=== PATIENT | female | born 1955 | race Caucasian/White ===

== ENCOUNTER 2019-07-14 08:25 | Inpatient (IN) | payer MEDICAID, OTHER ==
[2019-07-14 12:40] VITALS: BP 119/64
[2019-07-14] MEDS ORDERED: Acetaminophen 500 MG TAB PO PRN (13:57)
[2019-07-14] MEDS ORDERED: Magnesium Hydroxide (MOM) 30 mL UDC PO PRN (13:57)
[2019-07-14] MEDS ORDERED: Maalox 30 mL Cup PO PRN (13:57)
[2019-07-14] MEDS ORDERED: GLUCAGON HCl 1 MG KIT IM PRN (14:03)
--- NOTE | 2019-07-14 14:17 | History & Physical ---
ADMIT DATE: 07/14/2019 CHIEF COMPLAINT: Agitation. HISTORY OF PRESENT ILLNESS: We have a 63-year-old female with bipolar and diabetes, who is admitted with suicidal ideations. The patient has longstanding bipolar disease. The patient has newly diagnosed diabetes. The patient denies any chest pain, shortness of breath. No nausea, vomiting, abdominal pain, diarrhea. PAST MEDICAL HISTORY: 1. Diabetes. 2. Bipolar. PAST SURGICAL HISTORY: None. MEDICATIONS: List reviewed. ALLERGIES: None. SOCIAL HISTORY: Tobacco, IV drugs, and ETOH negative. PHYSICAL EXAMINATION: VITAL SIGNS: Temperature is 98.6, pulse 80, respirations 20, blood pressure 119/64. HEENT: Normocephalic, atraumatic head exam. NECK: Supple. CARDIOVASCULAR: Regular rate and rhythm. LUNGS: Clear. ABDOMEN: Soft, nontender. EXTREMITIES: No edema, cyanosis or clubbing. ASSESSMENT AND PLAN: 1. Suicidal ideation. 2. Diabetes. 3. Hypertension. The patient will continue Accu-Cheks q.a.c. and at bedtime. The patient will continue with sliding scale insulin. The patient will continue supportive care. JOB# [id number]
[2019-07-14] MEDS: INSULIN LISPRO SLIDING SCALE 100 UNITS/ML UNIT SUBQ SCH ×2 (17:01→21:37)
[2019-07-14] MEDS: Benztropine 1 MG TAB PO SCH (21:34)
[2019-07-15] MEDS: Levothyroxine 0.025 Mg Tab PO SCH (06:59)
[2019-07-15] MEDS: Potassium Chloride 20 mEq ER Tab PO SCH (06:59)
[2019-07-15] MEDS: INSULIN LISPRO SLIDING SCALE 100 UNITS/ML UNIT SUBQ SCH ×4 (06:59→20:44)
[2019-07-15] MEDS: Pantoprazole 40 mg EC Tab PO SCH (08:39)
[2019-07-15] MEDS: Atorvastatin Calcium 10 MG TAB PO SCH (08:39)
[2019-07-15] MEDS: Multivitamin Tab PO SCH (08:39)
--- NOTE | 2019-07-15 14:49 | Psychiatric Evaluation ---
DATE OF SERVICE: 07/14/2019 IDENTIFYING DATA: The patient is a 63-year-old woman living with a friend. Information obtained by directly interviewing the patient as well as reviewing the admission papers. JUSTIFICATION OF HOSPITALIZATION: The patient is admitted here on a 5150 as a danger to self. CHIEF COMPLAINT: "I'm feeling depressed, I cannot go on like this." HISTORY OF PRESENT ILLNESS: This is one of multiple psychiatric hospitalizations, but the first one to the [facility] for this patient who has overdosed on multiple medications in a suicidal attempt. The patient is reporting that she has been frustrated and has been feeling depressed and has been reluctant to take showers for days together and on the day of the hospitalization, the patient has overdosed on medications and the patient lost control and then fell and sustained injury to her right orbit. The patient has a black eye on the right side and the patient has been evaluated in the Emergency Room and has been medically cleared and transferred over here for further stabilization. The patient is reporting that she is being followed up by Dr. Red Wu in [facility] and the patient is stating that she had been on Seroquel. PAST PSYCHIATRIC HISTORY: The patient has been diagnosed to have bipolar disorder since 1995 and the patient is stating that she had been on several different medications and hospitalized on several occasions. The patient is stating that of all the medications, the Seroquel is the one that has been of some help to her. Past medical history and physical examination is requested from Dr. Fallon and is significant for patient having carcinoma of the breast and the patient has undergone mastectomy on the right side in 07/2016. The patient has an oncologist. She follows up on an outpatient basis. SUBSTANCE ABUSE HISTORY: The patient is recovering and the patient has not had any alcohol in over a decade. The patient is currently on pain medications. PHYSICAL OR SEXUAL ABUSE HISTORY: None. LEGAL PROBLEMS: None at this time. STRENGTH AND ASSETS: The patient is motivated. MENTAL STATUS EXAMINATION: The patient is a 63-year-old, looking her stated age, superficially cooperative. Eye contact is poor. Mood is noted to be depressed. The patient is tearful and stating that she could not fair it out, but the patient is stating that she has all the time feels that the whole world is against her and the patient is stating that she has been having acute mood swings and the patient is stating that she could not fair it out how she can get some control on them. The patient is blaming herself. The patient is alert and oriented to time, place, person and situation. Attention span and concentration are noted to be fair. The patient's short and long-term memory are noted to be intact. The patient is willing to comply with the treatment at this time. The patient's behavior is ____ danger to self. The patient is not homicidal. DIAGNOSTIC IMPRESSION: AXIS I: Bipolar disorder, depressed with psychotic symptoms. AXIS II: None. AXIS III: As per Dr. Fallon. IMMEDIATE TREATMENT PLAN: The patient is going to be observed on inpatient unit, provided with supportive psychotherapy. The patient is going to be started with low dose of the Seroquel. Consideration for the lithium is going to be looked into. ESTIMATED LENGTH OF STAY: 5-7 days. DISCHARGE CRITERIA: When she no longer a threat to self or others and be able to cope up with the stress. JOB# [id number]
[2019-07-15] MEDS: Benztropine 1 MG TAB PO SCH (20:42)
[2019-07-16] MEDS: Levothyroxine 0.025 Mg Tab PO SCH (06:41)
[2019-07-16] MEDS: INSULIN LISPRO SLIDING SCALE 100 UNITS/ML UNIT SUBQ SCH ×4 (06:41→21:16)
[2019-07-16] MEDS: Potassium Chloride 20 mEq ER Tab PO SCH (06:54)
[2019-07-16] MEDS: Atorvastatin Calcium 10 MG TAB PO SCH (08:40)
[2019-07-16] MEDS: Pantoprazole 40 mg EC Tab PO SCH (08:40)
[2019-07-16] MEDS: Multivitamin Tab PO SCH (08:41)
--- NOTE | 2019-07-16 20:50 | Progress Notes ---
DATE: 07/16/2019 SUBJECTIVE: Staff was spoken to. The patient is interviewed. Mood is noted to be irritable. Affect is constricted. The patient is stating that she is not able to sleep and she is still feeling depressed. The patient is stating that she overdosed on gabapentin and Flexeril and she states that she has not been taking much of the Seroquel. ASSESSMENT: The patient's mood swings are still a problem. PLAN: To continue the patient with the current medications and increase the dose on the Seroquel to 400 mg and follow the patient with the supportive therapy. JOB# [id number]
[2019-07-17] MEDS: Levothyroxine 0.025 Mg Tab PO SCH (06:47)
[2019-07-17] MEDS: Potassium Chloride 20 mEq ER Tab PO SCH (06:47)
[2019-07-17] MEDS: INSULIN LISPRO SLIDING SCALE 100 UNITS/ML UNIT SUBQ SCH ×4 (06:54→20:18)
[2019-07-17] MEDS: Multivitamin Tab PO SCH (09:01)
[2019-07-17] MEDS: Pantoprazole 40 mg EC Tab PO SCH (09:01)
[2019-07-17] MEDS: Atorvastatin Calcium 10 MG TAB PO SCH (09:01)
--- NOTE | 2019-07-17 13:56 | Progress Notes ---
DATE: 07/17/2019 SUBJECTIVE: Staff was spoken to. The patient is interviewed. Mood is noted to be less irritable. The patient is stating that she is still having mood swings and she was not able to sleep well last night. The patient's insight and judgment at this time are noted to be still impaired. Impulse control seems to be limited. Coping skills are noted to be limited. The patient has no insight into her illness. ASSESSMENT: The patient is still psychotic and having acute mood swings. PLAN: To continue the patient with the Seroquel and followup. JOB# [id number]
--- NOTE | 2019-07-17 13:59 | Consultation ---
DATE OF CONSULTATION: 07/16/2019 HISTORY OF PRESENT ILLNESS: The patient is a 63-year-old female. The following is by review of the medical record and by the patient's self- report. The patient is being admitted on a 5150 as a danger to self. Upon interview, the patient states that she has been feeling very depressed and feels hopeless, helpless and futility. She states she cannot go on like this. The patient admits that she tried to overdose on multiple medications. She specified Flexeril and gabapentin. The patient presents with a black eye on her right side. She was medically cleared in the Emergency Room and transferred here for stabilization. The patient admits to having suicidal ideation with a plan and intention. PAST MEDICAL HISTORY: Please see history and physical by Dr. Fallon of specific note is the patient having a history of carcinoma of the breast and had undergone a right side mastectomy. She is being followed up on an outpatient basis by her oncologist. PAST PSYCHIATRIC HISTORY: The patient has a history of bipolar disorder and was diagnosed in 1995. The patient has multiple previous psychiatric hospitalizations. The patient is under the care of her oncologist and primary care physician. It is unknown if the patient is under the care of a psychiatrist and psychologist. This information to be determined later. 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 The patient states no relapse with alcohol, which is her drug of choice. However, the patient does abuse medications as admitted by her. The patient states no specific recovery program, but acknowledged help from 12-step programs. The patient denies any tobacco use or illicit drug use. PSYCHOSOCIAL HISTORY: The patient denied any history of sexual abuse or any current legal problems. The patient is single and never with no children. The patient states she has a friend named, Elba, who is involved in her care. The patient stated no specific occupation or educational history. The patient states she is unemployed for many years. 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 MENTAL STATUS EXAMINATION: The patient appears to be her stated age. The patient's attitude is cooperative. Eye contact is intermittent. Speech is pressured but spontaneous. Mood is depressed. Affect is labile and tearful. The patient is stating that she feels that the world is unfair and is against her. Mood fluctuations are present. The patient endorsed the items of feeling hopeless and helpless as well as blaming herself. The patient admits to experiencing suicidal ideation with a plan and intention. The patient's behavior has been cooperative and compliant on the unit according to staff. Impulse control is inadequate. Concentration seems to be fair. Intellectual functioning seems to be average. Sensorium is alert and oriented x 3. The patient was able to participate in the memory assessment. Immediate, short and long-term memory appeared to be intact. The patient did not participate in the interpretation of proverbs. Insight is poor. Judgment is impaired. DIAGNOSTIC IMPRESSION: AXIS I: Bipolar disorder, depressed with psychotic symptoms. AXIS II: Deferred. AXIS III: Per Dr. Fallon. TREATMENT PLAN: The patient has been seen by Dr. Olivarez for psychiatric evaluation and for the management of the patient's psychotropic medications. We will provide supportive psychotherapy to include reality orientation, differentiation and integration. We will provide coping strategies for chronic severe mental illness as well as for phase of life issues. We will encourage the patient to verbally contract for safety on a daily basis. We will provide suicide prevention interventions. We will encourage the patient to verbalize any suicidal thoughts that she may have with the staff. We will provide motivational enhancement for the patient to become compliant and stay compliant with all aspects of her care and treatment. The attending psychiatrist indicates the patient is going to be started on a low dose of Seroquel. We will continue this treatment throughout the patient's hospital stay. Thank you, Dr. Olivarez for this consult and the opportunity to participate with you in this patient's care. JOB# [id number] [facility]
[2019-07-18] MEDS: Levothyroxine 0.025 Mg Tab PO SCH (06:41)
[2019-07-18] MEDS: Potassium Chloride 20 mEq ER Tab PO SCH (06:41)
[2019-07-18] MEDS: INSULIN LISPRO SLIDING SCALE 100 UNITS/ML UNIT SUBQ SCH ×4 (06:42→21:41)
[2019-07-18] MEDS: Pantoprazole 40 mg EC Tab PO SCH (08:49)
[2019-07-18] MEDS: Multivitamin Tab PO SCH (08:49)
--- NOTE | 2019-07-18 21:32 | Progress Notes ---
DATE: 07/18/2019 PSYCHIATRIC PROGRESS NOTE SUBJECTIVE: Staff was spoken to. The patient is interviewed. Mood is noted to be irritable. Affect is constricted. The patient is still having mood swings and the patient is not able to contract for safety. No side effects to the medications are noted. Insight and judgment at this time are noted to be still impaired. Impulse control seems to be limited. Coping skills are noted to be limited. ASSESSMENT: The patient is still depressed and suicidal. PLAN: To continue the patient with the supportive therapy and followup. JOB# [id number]
[2019-07-18] MEDS: Atorvastatin Calcium 10 MG TAB PO SCH ×2 (21:40→22:00)
[2019-07-18] MEDS: Magnesium Hydroxide (MOM) 30 mL UDC PO PRN (21:46)
[2019-07-19] MEDS: Pantoprazole 40 mg EC Tab PO SCH (06:38)
[2019-07-19] MEDS: Potassium Chloride 20 mEq ER Tab PO SCH (06:38)
[2019-07-19] MEDS: INSULIN LISPRO SLIDING SCALE 100 UNITS/ML UNIT SUBQ SCH ×4 (06:39→21:05)
[2019-07-19] MEDS: Levothyroxine 0.025 Mg Tab PO SCH (06:39)
[2019-07-19] MEDS: Multivitamin Tab PO SCH (08:54)
--- NOTE | 2019-07-19 10:53 | Progress Notes ---
DATE: 07/18/2019 PSYCHOLOGY PROGRESS NOTE SUBJECTIVE: The patient is seen and is interviewed. Case is discussed with staff. The patient continues to present as easily irritated and guarded. Mood fluctuations continue. The patient is compliant with medications according to the staff. The patient has not exhibited any other aggressive behavior. The patient admits that she is still depressed and that she still has passive suicidal thoughts. OBJECTIVE: Mood is depressed and irritable with mood swings. Affect is animated. Thought process includes tangentiality. However, the patient is responsive to cognitive refocusing. The patient denied any auditory or visual hallucinations or any delusions. The patient admits that she still has passive suicide ideation without a plan. The patient's behavior has been mostly isolative. ASSESSMENT: The patient's depression and suicidality persist. PLAN: We will continue with supportive psychotherapy. We provided reality orientation, differentiation and integration. We provided coping strategies for phase of life issues as well as for chronic severe mental illness. The patient was able to access learned coping skills through her past treatment for substance abuse and apply these to her current circumstances. We provided an opportunity for the patient to verbally contract for safety. She was able to do so. We provided suicide prevention interventions as well. We will follow up in 2-3 days to continue the present treatment if the patient remains admitted on the unit and is able to benefit from psychology services. [facility]# [id number] LYNDSAY
--- NOTE | 2019-07-19 12:51 | Progress Notes ---
DATE: 07/19/2019 SUBJECTIVE: Staff was spoken to. The patient is interviewed. Mood is noted to be irritable. Affect is constricted. Mood swings are coming under control. The patient is stating that with increase the dose of the Seroquel she was able to sleep and she is regretting that she has taken a bunch of pills. environmental services supervisor have been spoken to and they are going to be coordinating the care with regard followup plans. ASSESSMENT: The patient is still having mood swings. PLAN: To continue the patient with the current medications and followup. JOB# [id number]
[2019-07-19] MEDS: Atorvastatin Calcium 10 MG TAB PO SCH (20:28)
[2019-07-19] MEDS: Magnesium Hydroxide (MOM) 30 mL UDC PO PRN (21:09)
[2019-07-20] MEDS: Potassium Chloride 20 mEq ER Tab PO SCH (06:49)
[2019-07-20] MEDS: Pantoprazole 40 mg EC Tab PO SCH (06:50)
[2019-07-20] MEDS: Levothyroxine 0.025 Mg Tab PO SCH (06:50)
[2019-07-20] MEDS: INSULIN LISPRO SLIDING SCALE 100 UNITS/ML UNIT SUBQ SCH ×4 (07:14→20:53)
[2019-07-20] MEDS: Multivitamin Tab PO SCH (09:00)
[2019-07-20] MEDS: Atorvastatin Calcium 10 MG TAB PO SCH (20:51)
[2019-07-20] MEDS: Magnesium Hydroxide (MOM) 30 mL UDC PO PRN (21:03)
--- NOTE | 2019-07-20 21:06 | Progress Notes ---
DATE: 07/20/2019 PSYCHOLOGY PROGRESS NOTE SUBJECTIVE: The patient is seen in her room and is interviewed. Case is discussed with staff. The patient presents as irritable, but less agitated. Staff reports the mood fluctuations are improving and possibly coming under control. The patient admits that she made a mistake by taking an excess of pills and understands that this was an attempt to end her life. The patient seems to be taking some accountability for this decision and behavior. OBJECTIVE: Mood is mildly irritable and dysphoric. Affect is mood congruent and reactive. Mood fluctuations are lessening. The patient denied any hallucinations. The patient states that she has not had suicidal thoughts in the last 24 hours. The patient was able to verbally contract for safety for no self-harm and to disclose to the staff if she is having any suicidal thoughts. The patient is somewhat still isolative and withdrawn. ASSESSMENT: The patient's mood swings seem to be lessening, however, they persist. The observation and continued daily opportunity for the patient to verbally contract for safety should be continued. PLAN: As above. We provided the patient the opportunity to verbally contract for safety, which she was able to do. We provided coping strategies for chronic severe mental illness as well as her medical illness. The patient is having concerns about her mortality and length of life due to her cancer diagnosis and her continued treatment with her oncologist. We recommend the patient have outpatient therapy with a psychologist, specifically cognitive behavioral therapy to address the patient's ongoing anxiety and depression while continuing her treatment with her oncologist. We will follow up in 2-3 days if the patient remains on the unit to continue the present treatment. JOB# [id number] LYNDSAY
--- NOTE | 2019-07-20 22:49 | Progress Notes ---
DATE: 07/20/2019 SUBJECTIVE: Staff was spoken to. The patient is interviewed. Mood is noted to be less irritable. The patient has been denying any command hallucinations. Mood swings are coming under control. The patient has suicidal ideation, but no plans are voiced and the patient seems to be stabilizing and we have contacted the patient's roommate who states that she can her up tomorrow. ASSESSMENT: The patient is stabilizing, the depression is resolving. PLAN: To continue the patient with the current medications and followup. JOB# [id number]
[2019-07-21] MEDS: INSULIN LISPRO SLIDING SCALE 100 UNITS/ML UNIT SUBQ SCH ×2 (07:06→11:29)
[2019-07-21] MEDS: Levothyroxine 0.025 Mg Tab PO SCH (07:08)
[2019-07-21] MEDS: Potassium Chloride 20 mEq ER Tab PO SCH (07:09)
[2019-07-21] MEDS: Pantoprazole 40 mg EC Tab PO SCH (07:09)
[2019-07-21] MEDS: Multivitamin Tab PO SCH (08:47)
--- NOTE | 2019-07-21 11:17 | Discharge Summary ---
DATE OF DISCHARGE: 07/21/2019 IDENTIFYING DATA: The patient is a 63-year-old woman living with a friend. JUSTIFICATION OF HOSPITALIZATION: The patient is admitted on 5150 as a danger to self. CHIEF COMPLAINT: "I am feeling depressed, I cannot be like this". DIAGNOSES AT THE TIME OF ADMISSION: AXIS I: Bipolar disorder, depressed with psychotic symptoms. AXIS II: None. AXIS III: As per Dr. Fallon. HOSPITAL COURSE AND RESPONSE TO TREATMENT: The patient has been observed on inpatient unit, provided with supportive psychotherapy. The patient has been placed on the Seroquel that was gradually increased to 400 mg and the patient has been also placed on gabapentin 100 mg 3 times a day. The patient has been closely monitored and encouraged to verbalize the concerns. The patient started to do fairly well and hence was discharged on 07/21/2019 to the care of the friend with whom she lives. MENTAL STATUS EXAMINATION: At the time of the discharge is noted to be stable. The patient is not presenting as a threat to self or others at the time of the discharge. The patient denies active hallucinations or delusions are noted. DISCHARGE DIAGNOSES: Queen I: Bipolar disorder, mixed, with psychotic symptoms. AXIS II: None. AXIS III: As per Dr. Fallon. AFTERCARE PLAN: The patient is discharged to [facility] to be followed up on an outpatient basis. JOB# [id number]
== END 2019-07-21 11:47 | disposition home or self-care (01) | DRG 885 ==
LOC: GERO 12:16
PROVIDERS: ADMIT Psychiatry & Neurology Psychiatry; ATTEND Psychiatry & Neurology Psychiatry
DX: F31.5 Bipolar disorder, current episode depressed, severe, with psychotic features (principal); E11.00 Type 2 diabetes mellitus with hyperosmolarity without nonketotic hyperglycemic-hyperosmolar coma (NKHHC); R45.851 Suicidal ideations; I10 Essential (primary) hypertension; Z79.899 Other long term (current) drug therapy
CPT/HCPCS: 82948-90; 83036-90; Z7610